=== PATIENT | male | born 1990 | race Hispanic/Latino ===

== ENCOUNTER 2020-10-03 10:56 | Emergency (ER) | payer OTHER ==
[2020-10-03 11:57] LABS: Bilirubin Negative (Negative); Blood, Urine Negative (Negative); Clarity Turbid (Clear); Glucose, Urine (Dipstick) Normal (Negative); Ketone, Urine Negative (Negative); Leukocyte Negative Leu/uL (Negative); Nitrite Negative (Negative); Protein, Urine (Dipstick) 50 mg/dL (Neg-Trace); RBC/HPF 0-3 HPF (0-3); Specific Gravity, Urine 1.035 (1.002-1.036); Squamous Epithelial None Seen HPF (0-3); Urobilinogen Normal mg/dL (Less than 2)
[2020-10-03 12:00] LABS: Bacteria/HPF 1+ HPF (None Seen)
[2020-10-03 12:17] LABS: ALT (SGPT) 139 U/L (8-55); AST (SGOT) 75 U/L (5-34); Albumin 4.5 g/dL (3.5-5.0); Alkaline Phosphatase 82 U/L (40-110); Anion Gap 12 mmol/L (10-20); BUN (Urea Nitrogen) 14 mg/dL (8.9-20.6); Bilirubin, Total 0.9 mg/dL (0.2-1.2); Calc. Creatinine Clearance 0 mL/min (70-130); Calcium 9.2 mg/dL (7.8-10.44); Carbon Dioxide 26 mmol/L (22-29); Chloride 102 mmol/L (98-107); Glucose 109 mg/dL (70-105); Lipase 15 U/L (8-78); Potassium 4.1 mmol/L (3.5-5.1); Protein, Total 8.5 g/dL (6.0-8.3); Sodium 136 mmol/L (136-145)
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
[2020-10-03 12:34] LABS: Band 7 % (5-11); Eosinophils 1 % (0-10); Hemoglobin 17.1 g/dL (14.0-18.0); Lymphocytes 18 % (21-51); MDiff Complete? YES; Mean Corpuscular HGB CONC 33.4 g/dL (32.0-36.0); Mean Corpuscular Hemoglobin 32.2 pg (27.0-31.0); Mean Corpuscular Volume 96.4 fL (78.0-98.0); Mean Platelet Volume 11.3 fL (7.4-10.4); Monocytes 2 % (0-10); Neutrophil 68 % (42-75); Platelet Clumps MARKED; Platelet Morphology Comment PLT clumps seen-ADEQ; RBC Distribution Width 11.3 % (11.5-14.5); RBC Morphology Normal; Reactive Lymphocytes 4 % (0-10); Red Blood Cell (RBC) Count 5.32 mill/uL (4.70-6.10); White Blood Cell (WBC) Count 12.6 thou/uL (4.8-10.8)
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
[2020-10-03] MEDS ORDERED: Iopamidol-370 76% 500 ML 1 ML ONE (13:50)
[2020-10-03] MEDS ORDERED: Boostrix 0.5 ML (Tdap) VIAL ONE (14:14)
== END 2020-10-03 14:20 | disposition home or self-care (01) ==
LOC: ERS 10:56
DX: S00.01XA Abrasion of scalp, initial encounter (principal); M54.5 Low back pain; V69.9XXA Occupant (driver) (passenger) of heavy transport vehicle injured in unspecified traffic accident, initial encounter; Z23 Encounter for immunization
CPT/HCPCS: 36415; 70450; 71260; 72125; 74177; 80053; 81003; 81015; 83690; 85025; 90471; 90715; Q9967